=== PATIENT | female | born 1950 | race Caucasian/White ===

== ENCOUNTER 2023-10-01 12:42 | Outpatient (AMB) | payer MEDICARE, OTHER, SELFPAY ==
--- NOTE | 2023-10-01 12:43 | A.OFFVIS_ITS ---
Vital Signs 10/01/23 12:52 Height 5 ft 7 in Weight 193 lb 9.054 oz BMI 30.3 BP 126/62 Blood Pressure Location Rt brachial Position Sitting Pulse 93 Pulse Source Pulse Oximeter Pulse Oximetry (%) 97 Oxygen Delivery Method Room Air Intake Visit Reasons: bl hand Arth Intake Note: New patient, externally referred by Dr. Mason, supportability engineer, presents to office today for lilia hand arthritis. NO HX IN RECS. 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 Esquivel 73yoF here with her daughter on referral for evaluation of hand pain with occasional swelling. They want to know if there is something she can take to help with the pain in her ankle and hands. She is only allowed Tylenol at time because many other things such as NDAIDs are contraindicated due to ESRD. She is currently on Dialysis. She is poised for Kidney transplant which was delayed secondary to a recent stroke. --finger turning and having deformities --dialysis started 1 year ago; listed for Kidney transplant --Left ankle pain; sprained 1 1/2 year ago. Did PT, given brace - did not continue full course of PT or neno the brace --takes Tylenol, --T2DM, HTN, Memory less. [facility] Medical History (Updated 10/01/23 @ 16:47 [facility] Screening examination for infectious disease Pain of midfoot Joint pain in both hands History of recent stroke Pain in joint, multiple sites Social History (Updated 10/01/23 @ 12:55 by Clare Johnson [facility]) Household Members: Family Alcohol intake: current Alcohol intake frequency: does not drink Patient Tobacco Use Status: Former Tobacco user Review of Systems Const All systems reviewed & are unremarkable except as noted in HPI and below Physical Exam Vital Signs: Last Vital Signs Pulse 93 10/01/23 12:52 BP 126/62 10/01/23 12:52 Pulse Ox 97 10/01/23 12:52 Oxygen Delivery Method Room Air 10/01/23 12:52 BMI result Body Mass Index 30.3 APPEARANCE: Patient in no acute distress EYES no redness, normal EARS:? External ear normal. NOSE/SINUS:? Airflow through both nares, no nasal discharge, no bleeding THROAT:? Oral mucosa moist, no ulcerations NECK:? No thyromegaly or masses, no adenopathy, trachea midline. HEART:? Regular rhythm, S1-S2 heard, no murmurs, rubs or gallops. LUNG:? Clear to percussion and auscultation EXTREMITIES:? No edema, no calf tenderness, normal peripheral pulses. NEURO:? Oriented and alert x3.? No focal weakness.? Reflexes symmetric.? Gait normal. SKIN:? There are no skin lesions evident. No objective signs of Raynaud's phenomenon. JOINT EXAM: Cervical Spine:.? Full range of motion without pain; no tenderness. Thoracic Spine:.? No scoliosis.? No tenderness on palpation. Lumbar Spine:.? Alignment normal.? Full range of motion without pain, no tend erness. Chest Wall:.? No tenderness, swelling, increased warmth or erythema. Hands:.? Normal pain-free range of motion without tenderness, swelling, increased warmth or erythema. Able to make a full fist and has a good life enrichment assistant strength. Multiple deformities to DIP joints, enlarged DIP with bony prominence, boutonniere appearance. Wrists:.? Normal pain-free range of motion without tenderness, swelling, increased warmth or erythema. Elbows:. Normal pain-free range of motion without tenderness, swelling, increased warmth or erythema. Shoulders:.?? Full range of motion without pain. No tenderness, weakness, swelling, increased warmth or erythema. Hips:.? Full range of motion without pain. Hip bursa:.? No tenderness. Knees:.?? Normal pain-free range of motion without tenderness, swelling, increased warmth or erythema.? There is no effusion or crepitation Ankles:.? Normal pain-free range of motion with tenderness around the right ankle with trace swelling but no increased warmth or erythema. Feet:.? Normal pain-free range of motion with tenderness around the right midfoot but no swelling, increased warmth or erythema. Tender points:? No tenderness to digital palpation at the occiput, trapezius, second rib, lateral epicondyle, knees, greater trochanter and gluteal area bilaterally. ? Assessment & Plan Assessment & Plan (1) Joint pain in both hands: Code(s): M25.541 - Pain in joints of right hand; M25.542 - Pain in joints of left hand Category: Medical (2) Pain of midfoot: Code(s): M79.673 - Pain in unspecified foot Category: Medical Qualifiers: Laterality: right Qualified Code(s): M79.671 - Pain in right foot Plan #Multiple Joint pain - hand, foot/ankle pain: More likely OA, possible inflammatory OA. The pain in the midfoot can be helped with proper shoe support/ankle support. Will obtain labs and xrays to evaluate further. Patient can continue to use Tylenol arthritis, topical aspercream and Lidocaine patch for her back. I also recommended OT to help with dexterity. Patient agree with plan. RTC 6 weeks. I spent 35 mins reviewing history, evaluating patient and documenting, Orders: Orders XR hand RT 2V 10/01/23 M25.541 - Pain in joints of right hand, M25.542 - Pain in joints of left hand, M79.673 - Pain in unspecified foot XR hand LT 2V 10/01/23 M25.541 - Pain in joints of right hand, M25.542 - Pain in joints of left hand, M79.673 - Pain in unspecified foot XR foot LT min 3V 10/01/23 M25.541 - Pain in joints of right hand, M25.542 - Pain in joints of left hand, M79.673 - Pain in unspecified foot Anti Extractable Nuclear Ag 10/01/23 M25.541 - Pain in joints of right hand, M25.542 - Pain in joints of left hand, M79.673 - Pain in unspecified foot Angiotensin Converting Enzyme 10/01/23 M25.541 - Pain in joints of right hand, M25.542 - Pain in joints of left hand, M79.673 - Pain in unspecified foot Complement C3 10/01/23 M25.541 - Pain in joints of right hand, M25.542 - Pain in joints of left hand, M79.673 - Pain in unspecified foot Comprehensive Met. Panel 10/01/23 M25.541 - Pain in joints of right hand, M25. 542 - Pain in joints of left hand, M79.673 - Pain in unspecified foot C Reactive Protein 10/01/23 M25.541 - Pain in joints of right hand, M25.542 - Pain in joints of left hand, M79.673 - Pain in unspecified foot Immunofixation Pnl, Serum 10/01/23 M25.541 - Pain in joints of right hand, M25.542 - Pain in joints of left hand, M79.673 - Pain in unspecified foot Uric Acid 10/01/23 M25.541 - Pain in joints of right hand, M25.542 - Pain in joints of left hand, M79.673 - Pain in unspecified foot Immunoglobulins,IgG IgA IgM 10/01/23 M25.541 - Pain in joints of right hand, M25.542 - Pain in joints of left hand, M79.673 - Pain in unspecified foot Protein Electrophoresis, Serum 10/01/23 M25.541 - Pain in joints of right hand, M25.542 - Pain in joints of left hand, M79.673 - Pain in unspecified foot XR foot RT min 3V 10/01/23 M25.541 - Pain in joints of right hand, M25.542 - Pain in joints of left hand, M79.673 - Pain in unspecified foot Erythrocyte Sedimentation Rate 10/01/23 M25.541 - Pain in joints of right hand, M25.542 - Pain in joints of left hand, M79.673 - Pain in unspecified foot MADI Reflex Titer and Pattern 10/01/23 M25.541 - Pain in joints of right hand, M25.542 - Pain in joints of left hand, M79.673 - Pain in unspecified foot Anti DNA DS Antibody 10/01/23 M25.541 - Pain in joints of right hand, M25.542 - Pain in joints of left hand, M79.673 - Pain in unspecified foot Anti-Centromere B Antibodies 10/01/23 M25.541 - Pain in joints of right hand, M25.542 - Pain in joints of left hand, M79.673 - Pain in unspecified foot Complement C4 10/01/23 M25.541 - Pain in joints of right hand, M25.542 - Pain in joints of left hand, M79.673 - Pain in unspecified foot Complete Blood Count Auto Diff 10/01/23 M25.541 - Pain in joints of right hand, M25.542 - Pain in joints of left hand, M79.673 - Pain in unspecified foot Creatine Kinase Total 10/01/23 M25.541 - Pain in joints of right hand, M25.542 - Pain in joints of left hand, M79.673 - Pain in unspecified foot Hepatitis A,B,C Profile 10/01/23 Z11.9 - Encounter for screening for infectious and parasitic diseases, unspecified T Spot TB 10/01/23 M25.541 - Pain in joints of right hand, M25.542 - Pain in joints of left hand, Z11.9 - Encounter for screening for infectious and parasitic diseases, unspecified Vitamin D 25-OH (D2 and D3) 10/01/23 M25.541 - Pain in joints of right hand, M25.542 - Pain in joints of left hand, M79.673 - Pain in unspecified foot UA w Microscopic 10/01/23 M25.541 - Pain in joints of right hand, M25.542 - Pain in joints of left hand, M79.673 - Pain in unspecified foot Scleroderma 70 Antibody 10/01/23 M25.541 - Pain in joints of right hand, M25.542 - Pain in joints of left hand, M79.673 - Pain in unspecified foot Sjogren's Antibodies 10/01/23 M25.541 - Pain in joints of right hand, M25.542 - Pain in joints of left hand, M79.673 - Pain in unspecified foot Coding Level of Care Code New Pt Level 4 (44061) Diagnoses Joint pain in both hands M25.541; M25.542 Pain of right midfoot M79.671 Laterality: right
[2023-10-01 12:52] VITALS: BP 126/62; PULSE 93; O2SAT 97; BMI 30.3
== END 2023-10-01 13:59 | disposition home or self-care (01) ==
PROVIDERS: PCP Internal Medicine Nephrology; Visit Provider Nurse Practitioner Family
DX: M25.541 Pain in joints of right hand (principal); M25.542 Pain in joints of left hand; M79.671 Pain in right foot
CPT/HCPCS: 99204

== ENCOUNTER → 2023-10-01 12:42 | Outpatient (BNVA) | payer MEDICARE, OTHER, SELFPAY | PROVIDERS: PCP Internal Medicine Nephrology; Visit Provider Nurse Practitioner Family | DX: M25.541 Pain in joints of right hand (principal); M25.542 Pain in joints of left hand; M79.671 Pain in right foot | CPT/HCPCS: 99202 ==